=== PATIENT | female | born 1990 | race Caucasian/White ===

== ENCOUNTER 2020-04-18 22:29 | Emergency (ER) | payer MEDICAID ==
[~2020-04-18] VITALS: Ht 170.2 cm; Wt 68.2 kg
[2020-04-18 22:36] VITALS: BP 107/69
[2020-04-18] MEDS ORDERED: ondansetron/PF 4mg/2ml inj IV STA (23:02)
[2020-04-18] MEDS ORDERED: normal saline 1000ml 1,000 ML IVB ONE (23:05)
[2020-04-18 23:20] LABS: BASOPHILS % (AUTO) 0.2 % (0-1); EOSINOPHILS % (AUTO) 0.1 % (0-6); HEMATOCRIT 39.8 % (35.0-45.0); HEMOGLOBIN 13.6 g/dl (12.0-16.0); LYMPHOCYTES # (AUTO) 1.6 X10'3 (1.1-4.8); LYMPHOCYTES % (AUTO) 9.6 % (21-51); MEAN CORPUSCULAR HEMOGLOBIN 29.4 PG (27.0-31.0); MEAN CORPUSCULAR HGB CONC 34.2 g/dL (33.0-36.5); MONOCYTES # (AUTO) 0.6 X10'3 (0-0.9); MONOCYTES % (AUTO) 3.8 % (2-12); NEUTROPHILS # (AUTO) 14.6 X10'3 (1.8-7.7); NEUTROPHILS % (AUTO) 86.3 % (42-75); PLATELET COUNT 274 X10'3 (140-440); RED BLOOD COUNT 4.62 X10'6 (4.20-5.60); WHITE BLOOD COUNT 16.9 X10'3 (4.5-11.0)
[2020-04-18 23:29] LABS: HCG SERUM QL POSITIVE
[2020-04-18 23:36] LABS: ALANINE AMINOTRANSFERASE 20 U/L (12-78); ALBUMIN 4.6 G/DL (3.4-5.0); ALBUMIN/GLOBULIN RATIO 1.2 (1.1-1.5); ALKALINE PHOSPHATASE 96 IU/L (46-116); ANION GAP 12 (8-16); ASPARTATE AMINO TRANSFERASE 16 U/L (10-37); BILIRUBIN,TOTAL 1.2 MG/DL (0.1-1.0); BLOOD UREA NITROGEN 10 MG/DL (7-18); BUN/CREATININE RATIO 13.9 (6.6-38.0); CALCIUM 9.2 MG/DL (8.5-10.1); CHLORIDE 103 MMOL/L (99-107); CREATININE 0.72 MG/DL (0.40-0.90); GLUCOSE 109 MG/DL (70-104); LIPASE 83 U/L (73-393); POTASSIUM 3.1 MMOL/L (3.5-5.1); SODIUM 138 MMOL/L (135-145); TOTAL CARBON DIOXIDE 23.4 MMOL/L (24-32); TOTAL PROTEIN 8.3 G/DL (6.4-8.2); eGFR > 90 ML/MIN
[2020-04-19] MEDS ORDERED: potassium Cl 20 mEq SR tablet PO STA
[2020-04-19] MEDS ORDERED: ondansetron 4mg rapidly disintigrating tab PO ONE (00:05)
[2020-04-19 00:53] LABS: CLARITY,URINE SLIGHTLY CLOUDY (Clear); COLOR,URINE YELLOW (Yellow); GLUCOSE, URINE NEGATIVE (Neg); KETONES,URINE >=80 mg/dl (Neg); LEUKOCYTE ESTERASE ,URINE NEGATIVE (Neg); NITRITES, URINE NEGATIVE (Neg); OCCULT BLOOD,URINE NEGATIVE (Neg)
[2020-04-19 00:57] LABS: PROTEIN,URINE 100 mg/dl (Neg)
[2020-04-19 01:05] LABS: UA COLLECTION TYPE CLN CATCH MIDSTREAM
[2020-04-19 01:06] LABS: BACTERIA,URINE FEW /HPF (Neg); MUCUS STRANDS MODERATE /LPF (Neg); RBC,URINE NONE SEEN /HPF (0-2); SQUAMOUS EPITHELIAL CELL,UR MODERATE /LPF (FEW)
[2020-04-19 01:09] LABS: BETA HCG,QUANTITATIVE 27646 mIU/ml
[2020-04-19 01:10] LABS: URINE AMPHETAMINE SCREEN NEGATIVE (Neg); URINE BARBITUATE SCREEN NEGATIVE (Neg); URINE BENZODIAZEPINES SCREEN NEGATIVE (Neg); URINE CANNABINOID SCREEN POSITIVE (Neg); URINE COCAINE SCREEN NEGATIVE (Neg); URINE METHADONE SCREEN NEGATIVE (Neg); URINE OPIATE SCREEN NEGATIVE (Neg); URINE PHENCYCLIDINE SCREEN NEGATIVE (Neg)
[2020-04-19] MEDS ORDERED: ONDA4TAB6 PO (01:30)
== END 2020-04-19 01:54 | disposition home or self-care (01) ==
LOC: ER 22:30
DX: O21.9 Vomiting of pregnancy, unspecified (principal); K29.00 Acute gastritis without bleeding; E87.6 Hypokalemia; Z79.899 Other long term (current) drug therapy; Z3A.00 Weeks of gestation of pregnancy not specified
CPT/HCPCS: 36415; 80053; 80305; 81001; 83690; 84702; 84703; 85025; 87088; 96361; 96374; 99283; J2405; J7030